=== PATIENT | female | born 1935 | race Caucasian/White ===

== ENCOUNTER → 2018-11-12 | Outpatient (RCR) | payer MEDICARE, OTHER | END | disposition home or self-care (01) | LOC: M PT 11:52 | PROVIDERS: ATTEND Family Medicine | DX: I89.0 Lymphedema, not elsewhere classified (principal) ==

== ENCOUNTER 2018-12-11 13:19 | Outpatient (RCR) | payer MEDICARE, OTHER | END 2018-12-13 | LOC: M PT 13:19 | PROVIDERS: ATTEND Family Medicine | DX: I89.0 Lymphedema, not elsewhere classified (principal) ==

== ENCOUNTER 2019-10-15 10:35 | Outpatient (RCR) | payer MEDICARE, BC | END 2019-11-13 | LOC: M PT 10:35 | PROVIDERS: ATTEND Family Medicine | DX: I89.0 Lymphedema, not elsewhere classified (principal) ==

== ENCOUNTER 2020-06-24 10:03 | Outpatient (RCR) | payer MEDICARE, BC | END 2020-07-13 | LOC: M PT 10:03 | PROVIDERS: ATTEND Family Medicine | DX: I89.0 Lymphedema, not elsewhere classified (principal) ==

== ENCOUNTER 2021-05-19 12:38 | Outpatient (RCR) | payer MEDICARE, BC | END 2021-06-12 | LOC: M PT 12:38 | PROVIDERS: ATTEND Family Medicine | DX: I89.0 Lymphedema, not elsewhere classified (principal) ==

== ENCOUNTER 2022-06-01 10:39 | Outpatient (RCR) | payer MEDICARE, BC | END 2022-06-12 | LOC: M PT 10:39 | PROVIDERS: ATTEND Family Medicine | DX: I89.0 Lymphedema, not elsewhere classified (principal) ==

== ENCOUNTER 2022-07-06 14:52 | Outpatient (RCR) | payer MEDICARE, BC | END 2022-07-13 | LOC: M PT 14:52 | PROVIDERS: ATTEND Family Medicine | DX: I89.0 Lymphedema, not elsewhere classified (principal) ==

== ENCOUNTER 2023-05-31 10:48 | Outpatient (RCR) | payer MEDICARE, BC | END 2023-06-13 | LOC: M PT 10:48 | PROVIDERS: ATTEND Family Medicine | DX: I89.0 Lymphedema, not elsewhere classified (principal) ==

== ENCOUNTER 2023-11-30 11:04 | Outpatient (RCR) | payer MEDICARE, BC | END 2023-12-14 | LOC: M PT 11:04 | PROVIDERS: ATTEND Family Medicine | DX: I89.0 Lymphedema, not elsewhere classified (principal) ==